=== PATIENT | female | born 1980 | race Caucasian/White ===

== ENCOUNTER 2018-05-21 22:06 | Emergency (ER) | payer MEDICAID ==
[~2018-05-21] VITALS: Ht 167.6 cm; Wt 70.3 kg
--- NOTE | 2018-05-21 22:06 | NUR ---
"ABD PAIN/N/V SINCE THIS AFTERNOON". VSS NO ACUTE DISTRESS NOTED AT THIS TIME. PT IS ALERT AND ORIENTED X4 ABLE TO MAKE NEEDS KNOWN. SKIN WARM AND INTACT. BREATHING RATE WNL WITH ADEQUATE CHEST RISE/FALL. WILL CONTINUE TO MONITOR FOR ANY CHANGES DURING THE SHIFT.
--- NOTE | 2018-05-21 22:07 | NUR ---
ER MD WATKINS AT BEDSIDE FOR EVAL
[2018-05-21 23:10] LABS: APPEARANCE,URINE SL CLOUDY (CLEAR); BILIRUBIN,URINE NEGATIVE (NEGATIVE); BLOOD, URINE NEGATIVE Ery/uL (NEGATIVE); COLOR,URINE YELLOW (YELLOW); KETONES,URINE TRACE (NEGATIVE); LEUKOCYTE ESTERASE ,URINE NEGATIVE (NEGATIVE); NITRITE, URINE NEGATIVE (NEGATIVE); PH,URINE 6.5 (5.0-8.0); PROTEIN,URINE NEGATIVE (NEGATIVE); UGLUCOSE NEGATIVE (NEGATIVE); UROBILINOGEN,URINE 0.2 EU/dL (0.2)
[2018-05-21 23:20] LABS: BACTERIA,URINE Few /HPF (None Seen); MUCUS,URINE Many /LPF (None Seen); RBC,URINE 0-2 /HPF (0-2); SQUAMOUS EPITHELIAL CELL,UR Few /HPF (None Seen); WBC,URINE 0-2 /HPF (0-3)
[2018-05-21 23:28] LABS: CALCIUM, SERUM 8.6 mg/dL (8.5-10.1); CREATININE 0.8 mg/dL (0.6-1.3); POTASSIUM 3.8 mmol/L (3.5-5.1)
[2018-05-21] MEDS ORDERED: DICYCLOMINE HCL INJ 20 MG/2 ML AMPUL IM ONE ×2 (23:30→23:31)
[2018-05-21] MEDS ORDERED: IV NS 0.9% 1,000 ML BAG IV ONE (23:30)
[2018-05-21] MEDS ORDERED: ONDANSETRON HCL/PF 4 MG/2 ML VIAL IVP ONE (23:30)
[2018-05-21] MEDS ORDERED: ONDANSETRON HCL/PF 4 MG/2 ML VIAL ONE (23:31)
[2018-05-21 23:33] LABS: HEMATOCRIT 40 % (33-45); HEMOGLOBIN 13.3 g/dL (11.5-14.8); LYMPHOCYTES # (AUTO) 0.6 /CMM (0.8-4.8); MEAN CORPUSCULAR HGB CONC 33 g/dl (31.0-36.0); MEAN CORPUSCULAR VOLUME 79 fL (82-100); MONOCYTES # (AUTO) 0.4 /CMM (0.1-1.30); NEUTROPHILS # (AUTO) 8.7 /CMM (1.8-8.9); PLATELET COUNT (AUTO) 242 /CMM (150-450); RDW COEFFICIENT OF VARIATION 13.9 (11.5-15.0); RED BLOOD CELL COUNT(AUTO) 5.08 MIL/uL (4.0-5.2); WHITE BLOOD COUNT (AUTO) 9.8 K/uL (4.3-11.0)
[2018-05-21 23:35] LABS: ALBUMIN 3.9 g/dL (3.4-5.0); BILIRUBIN,DIRECT 0.1 mg/dL (0.0-0.2); BILIRUBIN,TOTAL 0.3 mg/dL (0.2-1.0); TOTAL PROTEIN, SERUM 7.8 g/dL (6.4-8.2)
[2018-05-22 00:04] VITALS: BP 118/70
== END 2018-05-22 00:04 | disposition home or self-care (01) ==
LOC: ER 22:09
DX: K52.9 Noninfective gastroenteritis and colitis, unspecified (principal)
CPT/HCPCS: 36415; 80048; 80076; 81001; 83690; 84703; 85025; 96361; 96372; 96374; 99284; A4606; J0500; J2405; J7030; Z7610; 81000-TC

== ENCOUNTER 2019-07-10 23:54 | Emergency (ER) | payer MEDICAID ==
[~2019-07-10] VITALS: Ht 175.3 cm; Wt 72.6 kg
[2019-07-10 23:55] VITALS: BP 132/89
--- NOTE | 2019-07-11 00:20 | NUR ---
TECH AT BEDSIDE FOR EKG
[2019-07-11] MEDS ORDERED: LORAZEPAM 1 MG TABLET ONE (00:59)
[2019-07-11] MEDS ORDERED: LORAZEPAM 1 MG TABLET PO ONE (01:00)
== END 2019-07-11 01:27 | disposition home or self-care (01) ==
LOC: ER 23:57
DX: F41.0 Panic disorder [episodic paroxysmal anxiety] (principal); R00.0 Tachycardia, unspecified

== ENCOUNTER 2021-01-28 19:31 | Emergency (ER) | payer MEDICAID ==
[~2021-01-28] VITALS: Ht 175.3 cm; Wt 68.0 kg
--- NOTE | 2021-01-28 19:40 | NUR ---
PT BIBHUSBAND C/O SPOTTING AND CRAMPING X3 HOURS WHILE . PT AAOX4 BREATHING EVENLY AND UNLABORED. PT LMP 12/19/20. PT ATTACHED TO MONITOR AND POX. PT GIVEN BLANKET AND CALL LIGHT WITHIN REACH
[2021-01-28] MEDS ORDERED: IV NS 0.9% 1,000 ML BAG IV ONE (20:00)
--- NOTE | 2021-01-28 20:14 | NUR ---
PT REFUSED IV, ER PA AWARE.
[2021-01-28 20:19] LABS: BASOPHILS # (AUTO) 0.1 K/uL (0.0-0.2); HEMOGLOBIN 13.3 g/dL (11.5-14.8); MONOCYTES # (AUTO) 0.7 K/uL (0.1-1.30)
--- NOTE | 2021-01-28 20:20 | NUR ---
US AT BEDSIDE
[2021-01-28 20:22] LABS: BILIRUBIN,URINE NEGATIVE (NEGATIVE); COLOR,URINE YELLOW (YELLOW); LEUKOCYTE ESTERASE ,URINE NEGATIVE (NEGATIVE); NITRITE, URINE NEGATIVE (NEGATIVE); PH,URINE 6.5 (5.0-8.0); PROTEIN,URINE NEGATIVE (NEGATIVE); UGLUCOSE NEGATIVE (NEGATIVE); UROBILINOGEN,URINE 0.2 EU/dL (0.2)
[2021-01-28 20:25] LABS: BASOPHILS % (AUTO) 1.2 % (0.0-2.0); EOSINOPHILS % (AUTO) 2.8 % (0.0-6.0); HEMATOCRIT 41 % (33-45); LYMPHOCYTES # (AUTO) 2.6 K/uL (0.8-4.8); LYMPHOCYTES % (AUTO) 31.5 % (20.0-44.0); MEAN CORPUSCULAR HGB CONC 33 g/dl (31.0-36.0); MEAN CORPUSCULAR VOLUME 80 fL (82-100); MONOCYTES % (AUTO) 7.8 % (2.0-12.0); NEUTROPHILS # (AUTO) 4.8 K/uL (1.8-8.9); NEUTROPHILS % (AUTO) 56.7 % (43.0-81.0); WHITE BLOOD COUNT (AUTO) 8.4 K/uL (4.3-11.0)
[2021-01-28 20:28] LABS: BACTERIA,URINE 1+ /HPF (None Seen); RBC,URINE 21-50 /HPF (0-2); WBC,URINE 0-2 /HPF (0-3)
[2021-01-28 20:29] LABS: MUCUS,URINE Few /LPF (None Seen)
[2021-01-28 20:32] LABS: CREATININE 0.7 mg/dL (0.6-1.3); POTASSIUM 3.8 mmol/L (3.5-5.1)
[2021-01-28 20:36] LABS: PLATELET COUNT (AUTO) 339 K/uL (150-450)
[2021-01-28 20:44] LABS: ALBUMIN 4.2 g/dL (3.4-5.0); BILIRUBIN,DIRECT 0.1 mg/dL (0.0-0.2); BILIRUBIN,TOTAL 0.2 mg/dL (0.2-1.0)
--- NOTE | 2021-01-28 20:53 | NUR ---
US AT BEDSIDE
[2021-01-28] MEDS ORDERED: ACET-2605 PO (21:07)
[2021-01-28 21:16] VITALS: BP 125/80
--- NOTE | 2021-01-28 21:16 | NUR ---
PT OK TO DISCHARGE PER SARAH LEDEZMA. Patient discharged to home in stable condition. Written and verbal after care instructions given. Patient verbalizes understanding of instruction.Patient is awake and alert to self, day, and place. PT ambulatory with a steady gait
== END 2021-01-28 21:17 | disposition home or self-care (01) ==
LOC: ER 19:39
DX: O46.91 Antepartum hemorrhage, unspecified, first trimester (principal); Z3A.01 Less than 8 weeks gestation of pregnancy
CPT/HCPCS: 36415; 76805; 80048; 80076; 81001; 84702; 85025; 85730; 99284; J7030